=== PATIENT | male | born 1970 | race Caucasian/White ===

== ENCOUNTER 2018-11-10 21:49 | Emergency (ER) | payer OTHER ==
[~2018-11-10] VITALS: Ht 175.3 cm; Wt 117.0 kg
[2018-11-10] MEDS ORDERED: MOTRIN (22:51)
[2018-11-10] MEDS ORDERED: SYNTHROID (22:52)
[2018-11-11] MEDS ORDERED: KETO10TA2 PO (02:01)
[2018-11-11] MEDS ORDERED: CEFADROXIL500 MG PO (02:01)
== END 2018-11-11 02:09 | disposition home or self-care (01) ==
LOC: ER 21:49
DX: S61.421A Laceration with foreign body of right hand, initial encounter (principal); W26.0XXA Contact with knife, initial encounter; Y93.89 Activity, other specified; Y92.89 Other specified places as the place of occurrence of the external cause; Y99.8 Other external cause status

== ENCOUNTER 2021-01-06 14:09 | Emergency (ER) | payer OTHER ==
[~2021-01-06] VITALS: Ht 172.7 cm; Wt 90.7 kg
[~2021-01-06 14:09] MED LIST: CEFADROXIL500 MG PO; KETO10TA2 PO; MOTRIN; SYNTHROID
[2021-01-06] MEDS ORDERED: LEVOTHYROXINE25 MCG (14:30)
[2021-01-06] MEDS ORDERED: ZOLOFT50 MG (14:30)
[2021-01-06] MEDS ORDERED: CIPRO500 MG PO (23:39)
[2021-01-06] MEDS ORDERED: NORFLEX100MG PO (23:39)
[2021-01-06] MEDS ORDERED: TAMS0.4C PO (23:39)
== END 2021-01-06 23:47 | disposition home or self-care (01) ==
LOC: ER 14:09
DX: M54.50 Low back pain, unspecified (principal); N50.812 Left testicular pain; N20.0 Calculus of kidney; N50.3 Cyst of epididymis; N39.0 Urinary tract infection, site not specified; N43.2 Other hydrocele

== ENCOUNTER 2022-08-02 13:40 | Emergency (ER) | payer OTHER ==
[~2022-08-02] VITALS: Ht 176.5 cm; Wt 101.6 kg
[~2022-08-02 13:40] MED LIST changes: +CIPRO500 MG PO; +LEVOTHYROXINE25 MCG; +NORFLEX100MG PO; +TAMS0.4C PO; +ZOLOFT50 MG
[2022-08-02] MEDS ORDERED: PROTONIX20 MG (14:21)
[2022-08-02] MEDS ORDERED: ATIVAN0.5 M1 PO (14:21)
[2022-08-02] MEDS ORDERED: HORIZANT300 MG PO (14:22)
== END 2022-08-02 18:33 | disposition home or self-care (01) ==
LOC: ER 13:40
DX: L02.11 Cutaneous abscess of neck (principal)